=== PATIENT | female | born 1990 | race American Indian/Alaskan Native ===

== ENCOUNTER 2016-07-02 07:50 | Day surgery (SDC) | payer OTHER ==
--- NOTE | 2016-07-01 18:32 | History and Physical Report ---
History of Present Illness Date of examination: 06/27/16 Chief complaint: Irregular uterine bleeding due to endometrial mass History of present illness: Past History : 0 [employer] History Operations: Tonsillectomy Abnormal PAP: negative Infection History Hx of STD: None Active Medications (reviewed today): IBUPROFEN 800 MG TABS (IBUPROFEN) 1 po TID (PRN) OXYCODONE-ACETAMINOPHEN 5-325 MG TABS (OXYCODONE-ACETAMINOPHEN) 1-2po q6h PLUS 27-1 MG TABS ( VIT-FE FUMARATE-FA) 1 po Current Allergies (reviewed today): No known allergies Past Medical History: Reviewed history from 11/08/2015 and no changes required: Negative Past Medical History Past Surgical History: Reviewed history from 11/08/2015 and no changes required: Tonsillectomy Social History: Patient is single Lesbian Smoking History: Patient has never smoked. Risk Factors: Smoked Tobacco Use: Never smoker Alcohol use: no PAP Smear History: Date of Last PAP Smear: 11/08/2015 Previous Tobacco Use: Signed On - 04/17/2016 Smoked Tobacco Use: Never smoker Drug use: no Previous Alcohol Use: Signed On 04/17/2016 Alcohol use: no Exercise: yes Times per week: 3 Seatbelt use: 100 % PAP Smear History: Date of Last PAP Smear: 11/08/2015 Review of Systems General Denies fever, chills, sweats, anorexia, fatigue, weakness, malaise, weight loss and sleep disorder. Denies vaginal discharge, incontinence, dysuria, hematuria, urinary frequency, amenorrhea, menorrhagia, abnormal vaginal bleeding, pelvic pain, genital sores, decreased libido, painful periods, painful sex, urinary urgency, hot flashes, vaginal dryness, vaginal itching and vaginal odor. CV Denies chest pains, palpitations, syncope, dyspnea on exertion, orthopnea, PND and peripheral edema. Resp Denies cough, dyspnea at rest, excessive sputum, hemoptysis, wheezing and pleurisy. GI Denies nausea, vomiting, diarrhea, constipation, change in bowel habits, abdominal pain, melena, hematochezia, jaundice, gas/bloating, indigestion/ heartburn, dysphagia and odynophagia. Endo Denies cold intolerance, heat intolerance, polydipsia, polyphagia, polyuria and unusual weight change. Breast Denies left breast lump, right breast lump, nipple discharge, bloody discharge from nipple, breast pain, abnormal mammogram and breast enlargement. MS Denies back pain, joint pain, joint swelling, muscle cramps, muscle weakness, stiffness, arthritis, sciatica, restless legs, leg pain at night and leg pain with exertion. Derm Denies rash, itching, dryness and suspicious lesions. Neuro Denies paralysis, paresthesias, headache, seizures, tremors, vertigo, transient blindness, frequent falls, frequent headaches and difficulty walking. Psych Denies depression, anxiety, irritability and mood swings. Eyes Denies blurring, diplopia, irritation, discharge, vision loss, eye pain and photophobia. ENT Denies earache, ear discharge, tinnitus, decreased hearing, nasal congestion, nosebleeds, sore throat and hoarseness. Allergy Denies urticaria, allergic rash, hay fever and recurrent infections. Heme Denies abnormal bruising, bleeding and enlarged lymph nodes. Physical Exam Appearance: well developed, well nourished, no acute distress Other Exams Lungs: no rales, rhonchi, or wheezes Heart: S1, S2, no murmur, rub, or gallop Impression & Recommendations: Problem # 1: Irregular Menses (OSA20-A41.6) Her updated medication list for this problem includes: Ibuprofen 800 Mg Tabs (Ibuprofen) ..... 1 po tid (prn) Plus 27-1 Mg Tabs ( vit-fe fumarate-fa) ..... 1 po Consent reviewed and signed . Possible laparoscopy or laparotomy explained to patient. The risks and alternatives for this surgery were reviewed with the patient. She was informed of possible bleeding, infection, injury to bowel, bladder, ureters or other adjacent organs. The patient was instructed/informed the following: The normal length of hospital stay for this procedure. Nothing to eat or drink after midnight the evening prior to surgery. Clear liquids the day before surgery. Fleets enema the day prior to surgery. Pre-op instruction sheets given. Wound care instructions given. Infection precautions reviewed, patient to call for any signs or symptoms of infection. The usual discomforts associated with this procedure were detailed. Proper use of pain medicines was reviewed. Patient was given ample opportunity to have all her questions answered before signing informed consent. Problem # 2: Endometrial mass (ICD-236.0) (ZOF53-A06.0) Medications Added to Medication List This Visit: 1) Ibuprofen 800 Mg Tabs (Ibuprofen) .... 1 po tid (prn) 2) Oxycodone-acetaminophen 5-325 Mg Tabs (Oxycodone-acetaminophen) .... 1-2po q6h Prescriptions: IBUPROFEN 800 MG TABS (IBUPROFEN) 1 po TID (PRN) #30 x 0 Entered and Authorized by: Rosalba Vasquez MD Method used: Print then Give to Patient RxID: [id number] OXYCODONE-ACETAMINOPHEN 5-325 MG TABS (OXYCODONE-ACETAMINOPHEN) 1-2po q6h #10 x 0 Entered and Authorized by: Rosalba Vasquez MD Method used: Print then Give to Patient RxID: [id number] Medications and Allergies Allergies Allergy/AdvReac Type Severity Reaction Status Date / Time cefaclor [From Count Includes [facility]] Allergy Rash Verified 06/28/16 13:46 Home Medications Medication Instructions Recorded Confirmed Last Taken Type No Known Home Medications [No 06/28/16 06/28/16 Unknown History Reported Home Medications] Assessment and Plan - Patient Problems (1) Irregular menstruation Status: Acute (2) Endometrial mass Status: Acute
[~2016-07-02 07:50] MED LIST: CLEOCIN 600 MG/50 mL 600 MG/50 ML BAG IV NR; GARAMYCIN/NS 120MG/100ML 120 MG/100 ML BAG IV SCH
[2016-07-02] MEDS ORDERED: GARAMYCIN IV SCH (08:00)
--- NOTE | 2016-07-02 09:11 | Anesthesia Consultation ---
Anesthesia Consult and Med Hx Date of service: 07/02/16 - Airway Anesthetic Teeth Evaluation: Good ROM Head & Neck: Adequate Mental/Hyoid Distance: Adequate Mallampati Class: Class I Intubation Access Assessment: Good - Pulmonary Exam CTA: Yes - Cardiac Exam Cardiac Exam: RRR - Pre-Operative Health Status ASA Pre-Surgery Classification: ASA2 Proposed Anesthetic Plan: General - Pulmonary Hx Smoking: Yes (Quit August 29, 2015) - Central Nervous System Hx Back Pain: Yes (2 bulging disk. Not causing problems) Hx Psychiatric Problems: No - Endocrine Hx Non-Insulin Dependent Diabetes: Yes (Pre-diabetes) - Other Systems Hx Alcohol Use: Yes (occas) Hx Cancer: No
--- NOTE | 2016-07-02 09:11 | Anesthesia Day of Surgery ---
Anesthesia Day of Surgery - Day of Surgery Patient Examined: Yes Patient H&P Reviewed: Yes Patient is NPO: Yes
[2016-07-02] MEDS ORDERED: NACL 0.9% 1000 ML 1,000 ML IV SCH (10:00)
[2016-07-02] MEDS ORDERED: PEPCID IV NR (10:00)
[2016-07-02] MEDS ORDERED: VERSED IV NR (10:00)
[2016-07-02] MEDS ORDERED: DILAUDID ONE (10:07)
[2016-07-02] MEDS ORDERED: DIPRIVAN 10 MG/ML IV ONE (10:07)
[2016-07-02] MEDS ORDERED: XYLOCAINE MPF 2% ONE (10:10)
[2016-07-02] MEDS ORDERED: NACL 0.9% IR ONE (12:15)
[2016-07-02] MEDS ORDERED: ZOFRAN ONE (12:20)
[2016-07-02] MEDS ORDERED: DECADRON ONE (12:21)
--- NOTE | 2016-07-02 12:47 | Operative Report ---
Operative Report Operative Report: Date of procedure: 07/02/2016 Pre-operative diagnosis: 1. Irregular uterine bleeding 2. Endometrial mass Post-operative diagnosis: 1. Irregular uterine bleeding 2. Endometrial mass Procedure name(s): 1. Operative hysteroscopy 2. Excision of endometrial mass using the Essure device 3. Dilation and curettage Surgeon: Rosalba Vasquez MD Vp Revenue Cycle: [] Anesthesia: General anesthesia Findings: Uterine was sounded to 8 cm. Small endometrial mass noted protruding from the right aspect of the lower uterine segment. Otherwise grossly normal intrauterine cavity Anesthesiologist: [] Complications: None EBL: Minimal Distension fliud: Normal saline Procedure: After risks, benefits, complications, consequences and alternatives for this procedure were discussed with the patient, and she voiced her understanding and desires to proceed she was taken to the OR where general anesthesia was induced. She was placed in the dorsal lithotomy position. Exam under anesthesia was unremarkable area. Timeout was performed. She was then prepped and draped in the usual sterile fashion. The bladder was drained of approximately 100 mL clear yellow urine. A bivalve speculum was introduced into the vagina. The anterior lip of the cervix was grasped with an Allis clamp , and the uterus was sounded to approximately 8 cm. The cervix was then progressively dilated to allow the operative hysteroscope. The above findings were noted. Using the Myosure excision device the mass was excised. Once the uterine cavity appeared to be clean. Gentle curettage was performed. Tissue was sent to pathology as a permanent. No obvious evidence of perforation was noted. All instruments were removed. No bleeding was noted from the Allis clamp site. The patient tolerated the procedure well to recovery in stable condition. Counts were correct x3.
--- NOTE | 2016-07-02 12:49 | Discharge Summary ---
Providers - Providers Date of discharge: 07/02/16 Attending physician: EJ RIVERA Primary care physician: ANAM MARLEY Hospitalization Condition: Good Disposition: DISCHARGED TO HOME OR SELFCARE - Discharge Diagnoses (1) Irregular menstruation Status: Resolved (2) Endometrial mass Status: Resolved Core Measure Documentation - Palliative Care Palliative Care/ Comfort Measures: Not Applicable - Core Measures Any of the following diagnoses?: none Exam - Constitutional Vitals: Temp Pulse Resp BP Pulse Ox 97.8 F 60 16 106/73 100 07/02/16 08:39 07/02/16 08:39 07/02/16 08:39 07/02/16 08:39 07/02/16 08:39 General appearance: Present: no acute distress - Respiratory Respiratory effort: normal - Cardiovascular Rhythm: regular - Extremities Extremities: no ischemia, No edema Plan Activity: other (no sex. ) Weight Bearing Status: Weight Bear as Tolerated Diet: regular Special Instructions: no heavy lifting Follow up with: EJ RIVERA MD [Staff Physician] - (as scheduled)
[2016-07-02] MEDS ORDERED: DEMEROL ONE (12:52)
--- NOTE | 2016-07-02 13:32 | Post Anesthesia Evaluation ---
- Post Anesthesia Evaluation Patient Participated: Yes Airway Patent: Yes Stable Respiratory Function: Yes Nausea/Vomiting: No Temp > 96.8F: Yes Pain Manageable: Yes Adequeate Hydration: Yes Anesthesia Complications: No Block Receding Appropriately: Not Applicable Patient on Ventilator: No
[2016-07-02] MEDS ORDERED: DEMEROL IV PRN (13:39)
[2016-07-02 14:59] VITALS: BP 132/80
== END 2016-07-02 15:04 | disposition home or self-care (01) ==
LOC: OR 07:50
PROVIDERS: ATTEND Obstetrics & Gynecology
DX: N85.8 Other specified noninflammatory disorders of uterus (principal); Z87.891 Personal history of nicotine dependence; Z72.89 Other problems related to lifestyle; Z98.890 Other specified postprocedural states
CPT/HCPCS: 58558; 81025; 82962; 86850; 86900; 86901; 88305; A4217; C1782; J1100; J1170; J1580; J2175; J2250; J2405; J2704; J7030